=== PATIENT | female | born 1995 | race Caucasian/White ===

== ENCOUNTER 2018-12-02 04:34 | Emergency (ER) | payer BC ==
[~2018-12-02] VITALS: Ht 160 cm; Wt 77.1 kg
[2018-12-02] MEDS ORDERED: KETO10TA2 PO (06:35)
== END 2018-12-02 06:44 | disposition home or self-care (01) ==
LOC: ER 04:34
DX: M94.0 Chondrocostal junction syndrome [Tietze] (principal); R10.11 Right upper quadrant pain